=== PATIENT | female | born 1990 ===

== ENCOUNTER 2024-06-12 05:38 | Day surgery (SDC) | payer OTHER ==
[2024-06-06 09:35] VITALS: BP 119/78
[2024-06-06 09:50] LABS: URINE APPEARANCE Clear; URINE BILIRRUBIN Negative (NEGATIVE); URINE BLOOD Moderate; URINE COLOR Yellow; URINE GLUCOSE Negative (NEGATIVE); URINE KETONE Negative (NEGATIVE); URINE LEUKOCYTE Negative; URINE NITRATE Negative; URINE PROTEIN Negative (NEGATIVE)
[2024-06-06 09:54] LABS: URINE BACTERIA 18.3 uL (0.0-1933); URINE EPITHELIAL CELLS 6.9 uL (0.0-38.8); URINE WBC 4.1 uL (0.0-23.2)
[2024-06-06 10:01] LABS: URINE CAST 0.14 uL (0.0-1.40)
[2024-06-06 10:09] LABS: INR 1.02; PARTIAL THROMBOPLASTIN TIME 28.5 SECONDS (22.0-34.0); PROTHROMBIN TIME 11.1 SECONDS (9.0-11.5)
[2024-06-06 10:59] LABS: ALBUMIN 3.9 gm/dL (3.4-5.0); BILIRUBIN TOTAL 0.45 mg/dL (0.3-1.2); CALCIUM 9.2 mg/dL (8.5-10.1); CREATININE SERUM 0.57 mg/dL (0.55-1.02); GFR 120.7; GLOBULINA 3.6 G/DL (2.4-3.5); POTASSIUM 4.43 mEq/L (3.5-5.1); TOTAL PROTEIN 7.5 gm/dL (6.4-8.2)
[2024-06-06 11:03] LABS: HEMATOCRIT 38.6 % (36.0-45.00); HEMOGLOBIN 13.1 g/dL (12.0-15.00); MEAN CELL VOLUME 89.6 fL (80.00-100.00); MEAN CORPUSCULAR HEMOGLOBIN 30.5 pg (27.00-32.0); PLATELET COUNT 249 K/uL (150-450); RED BLOOD COUNT 4.31 M/uL (4.00-6.00); RED CELL DISTRIBUTION WIDTH 12.3 % (11.5-14.5)
[~2024-06-12] VITALS: Ht 157.5 cm; Wt 63.5 kg
[2024-06-12] MEDS ORDERED: DEXAMETHASONE SODIUM PHOSPHATE 4 MG/ML VIAL IV SCH (11:27)
[2024-06-12] MEDS ORDERED: CEFAZOLIN SODIUM 1,000 MG VIAL IV SCH (11:30)
[2024-06-12] MEDS ORDERED: MORPHINE SULFATE 4 MG/ML VIAL IV ONE ×2 (12:55→14:25)
== END 2024-06-12 19:10 | disposition home or self-care (01) ==
LOC: CIR.AMB 05:38
PROVIDERS: ATTEND Otolaryngology
DX: D48.7 Neoplasm of uncertain behavior of other specified sites (principal); R59.0 Localized enlarged lymph nodes; J45.909 Unspecified asthma, uncomplicated